=== PATIENT | female | born 1970 | race Caucasian/White ===

== ENCOUNTER 2025-01-08 13:56 | Observation (INO) | payer BC, SELFPAY ==
[2025-01-08] VITALS (60 sets, daily range): BP systolic 129–190; BP diastolic 74–101; PULSE 51–75; RESP 16–18; TEMP 36.4–37.1; O2SAT 89–100
--- NOTE | 2025-01-08 14:15 | DI.CT_ITS ---
Exam(s) CT RENAL COLIC WO EXAM: CT RENAL COLIC WO CLINICAL HISTORY: Left flank pain and LLQ pain. TECHNIQUE: Imaging Protocol: Axial computed tomography images with coronal and sagittal reformatted images were created and reviewed CONTRAST MATERIAL: Intravenous: none Oral: None COMPARISON: No exams were available for comparison FINDINGS: VISUALIZED LUNG BASES: Mild increased subpleural markings are noted in the posterior basal segment left lower lobe. No confluent infiltrate. No pleural effusions.. ABDOMEN: There is no ascites. LIVER: There are no obvious focal hepatic lesions evident of this noninfused study. GALLBLADDER/BILIARY: No obvious gallbladder pathology. CBD is not dilated. PANCREAS: No evidence of pancreatic mass nor dilatation of the pancreatic duct. SPLEEN: Spleen is not enlarged. No obvious intrasplenic lesions. ADRENALS: There are no significant adrenal masses. KIDNEYS:No cysts evident. There is a solitary tiny punctate calculus in the upper pole region of the left kidney.. Right kidney unremarkable. There is dilatation of the left kidney extrarenal pelvis. And there is dilatation of the upper 2/3 of the left ureter 6 mm diameter. There are 2 adjacent calculi which appear to be in the ureter at the junction of the mid and lower thirds in the region of the iliac vessels. These calculi measure 2 and 4 mm. Lower down there is a 4-5 millimeter calcification adjacent to the left UVJ but this is probably a phlebolith. There are no radiopaque calculi seen in the urinary bladder lumen. ABDOMINAL AORTA: Abdominal aorta is not enlarged. LYMPH NODES: There is no retroperitoneal nor paraaortic adenopathy. ABDOMINAL WALL: No evidence of significant anterior abdominal wall nor inguinal hernia. GI: There is no evidence of bowel obstruction, free air, nor abscess. PELVIS: LYMPH NODES: There is no intrapelvic nor inguinal adenopathy. GI: No evidence of appendicitis.There is some diverticulosis in the descending left colon and sigmoid. No obvious diverticulitis. URINARY BLADDER: No calculi nor obvious masses evident REPRODUCTIVE: Uterus is small-retroverted.. There are no abnormal adnexal masses and no free fluid in the pelvis. OSSEOUS: No fractures. No listhesis. No ominous osseous lesions. Benign bone island noted in L2 vertebral body. IMPRESSION: 1. Left-sided mild hydronephrosis and hydroureter. The culprit calculi appear to be in the pelvic ureter with 2 adjacent calculi measuring 2 and 4 mm. 2. There is a punctate 1 mm calculus in the upper pole the left kidney. There are no calculi in the right kidney. 3. Diverticulosis of the descending left colon and sigmoid but no evidence of acute diverticulitis. Discussed by phone with ER physician 01/08/2025 at 4:03 p.m. RADIATION DOSE DELIVERED: 436.82mGy.cm Total DLP DATA REPOSITORY: All CT scans at this facility are submitted to the National Radiology Data Registry (NRDR) Dose Index Registry (DIR) with the [employer] (ACR). RADIATION OPTIMIZATION: All CT scans at this facility use at least one of these dose optimization techniques: automated exposure control; mA and/or kV adjustment per patient size (includes targeted exams where dose is matched to clinical indication); or iterative reconstruction.
--- NOTE | 2025-01-08 14:18 | W.ED.GENAD ---
Discharge Plan Disposition Patient Disposition: Admit to [facility] Condition: Fair Discharge Details Clinical Impression: Kidney stone on left side, Renal colic on left side, Intractable abdominal pain Primary Care Provider: Mercedes Amador ED Provider: Otf Choudhury Home Meds and New Rx's Prescriptions: No Action No Known Home Meds Discharge Data Discharge Physician: Otf Choudhury HPI General Date/Time Provider Initiated Documentation: 01/08/25 14:16. HPI Narrative: Patient presents emergency department complaining of left lower back and left flank pain that started last Saturday when he went to the primary care doctor and got muscle relaxers and NSAIDs but pain is worsened with associated nausea and now it migrates to the left lower quadrant. Denies any fever chills hematuria Related Data Home Medications Medication Instructions Recorded Confirmed Unknown [No Known Home Meds] 01/08/25 01/08/25 Allergies Allergy/AdvReac Type Severity Reaction Status Date / Time No Known Allergies Allergy Unverified 01/08/25 14:04 General Stated Complaint: Abd Prob ALEXANDER: 3 Review of Systems Narrative: Review of Systems: Constitutional: No fevers, chills, sweats Eye: No recent visual problems ENT: No ear pain, nasal congestion, sore throat Respiratory: No shortness of breath, cough Cardiovascular: No Chest pain, palpitations, syncope Gastrointestinal: diarrhea Genitourinary: No hematuria Marcos/Lymph: Negative for bruising tendency, swollen lymph glands Endocrine: Negative for excessive thirst, excessive hunger Musculoskeletal: No back pain, neck pain, joint pain, muscle pain, decreased range of motion Integumentary: No rash, pruritus, abrasions Neurologic: Alert & oriented X 4 Psychiatric: No anxiety, depression Exam Narrative Exam Narrative: Exam; vitals signs as reported above normal Constitutional; In no acute distress, afebrile General: cooperative, healthy appearing, comfortable and no acute distress HEENT: Head: normal to inspection, no palpable skull fracture and normocephalic atraumatic Eyes: : appearance normal, both eyes and all related structures EOM intact bilaterally Pupils: PERRL : conjunctiva normal Direct ophthalmoscopy: normal light reflex, normal conjunctiva, normal visual acuity Ears: Normal TM, normal external canal Nose: normal no rhinorreha Neck no JVD, supple non tender Neck: normal visual inspection, full ROM and no lymphadenopathy Chest: normal inspection of the chest Respiratory : normal respiratory effort and able to speak in complete sentences no wheezing no rales Cardio Rate: regular rate, rhythm: regular rhythm normal heart sounds S1 and S2 no murmurs, gallops, or rubs GI : normal to inspection, normal bowel sounds, soft, non tender, non distended, no organomegaly Back/Spine/ no CVA tenderness Thoracic/Lumbar Spine: no tenderness or deformities Skin no rashes or lesions Neuro: patient alert oriented x 4 and no meningeal signs, Cranial Nerves: CN's II-XI intact bilaterally, Cognition: normal cognition, Speech: speech normal, Gait: normal gait, Depp tendon reflexes normal 2+ muscle strength 5/5 bilaterally Extremities, no edema, full range of motion, normal strength Course Vital Signs Vital signs: Vital Signs Temperature 36.4 C L 01/08/25 13:59 Pulse 70 01/08/25 13:59 Respiratory Rate 18 01/08/25 13:59 Blood Pressure 172/97 H 01/08/25 13:59 Pulse Oximetry 98 01/08/25 13:59 Temperature 36.4 C L 01/08/25 14:13 Pulse 70 01/08/25 14:13 Respiratory Rate 18 01/08/25 14:13 Blood Pressure 172/97 H 01/08/25 14:13 Pulse Oximetry 98 01/08/25 14:13 Oxygen Delivery Method Room Air 01/08/25 14:13 Oxygen Flow Rate 0 01/08/25 14:13 Pain Level 7 01/08/25 14:13 Medical Decision Making MDM: Summary: Patient presents emergency room complaining of left lower back pain that radiates to the left lower quadrant that started last Saturday and today associated with nausea. With a suspicion of a kidney stone labs were done and urinalysis and a CT scan renal study. Urinalysis shows hematuria and the CT scan shows 2 kidney stones at 2 mm and 4 mm in the proximal ureter with associated hydronephrosis. Patient was given IV fluids, ketorolac, Dilaudid, morphine with mild resolution but still in pain. She was also given tamsulosin. With no resolution of the symptoms and spoken with Dr. Schmidt urology and with Dr. Paula the patient will be admitted to the hospital for continuation of therapy until the stones pass. Dr. Schmidt the urologist feels that this time she be conservative and watch and see if she will eventually need stenting Data Review Analysis All the data on this patient was reviewed by me including laboratory and imaging studies as well as bedside studies performed by me Independent review of Studies Imaging As reported above Lab: As reported above patient with Risk Stratification: Kidney stones and intractable pain will be admitted to the hospital Differential Diagnosis: 1.kidney stones 2.renal colic 3.hydronephrosis 4. 5. Consultants: Dr Schmidt and Dr Paula who agree on disposition Shared disposition: pt understands and agree to stay Impression: Medical Records Medical records reviewed: Yes I reviewed the patient's medical records. Imaging Data Radiologic Study: Imaging: CT Scan Radiologist's impression: Patient Name: Fabby Peraza Unit #: [id number] Loc: ER Ordering Provider: Otf Choudhury M.D. Status: [facility] Primary Care Provider: Mercedes Amador Date of Exam: 01/08/25 Sex: F : 1970 Age: 54 Exam(s) a CT:CT renal colic wo Exam(s) CT RENAL COLIC WO EXAM: CT RENAL COLIC WO CLINICAL HISTORY: Left flank pain and LLQ pain. TECHNIQUE: Imaging Protocol: Axial computed tomography images with coronal and sagittal reformatted images were created and reviewed CONTRAST MATERIAL: Intravenous: none Oral: None COMPARISON: No exams were available for comparison FINDINGS: VISUALIZED LUNG BASES: Mild increased subpleural markings are noted in the posterior basal segment left lower lobe. No confluent infiltrate. No pleural effusions.. ABDOMEN: There is no ascites. LIVER: There are no obvious focal hepatic lesions evident of this noninfused study. GALLBLADDER/BILIARY: No obvious gallbladder pathology. CBD is not dilated. PANCREAS: No evidence of pancreatic mass nor dilatation of the pancreatic duct. SPLEEN: Spleen is not enlarged. No obvious intrasplenic lesions. ADRENALS: There are no significant adrenal masses. KIDNEYS:No cysts evident. There is a solitary tiny punctate calculus in the upper pole region of the left kidney.. Right kidney unremarkable. There is dilatation of the left kidney extrarenal pelvis. And there is dilatation of the upper 2/3 of the left ureter 6 mm diameter. There are 2 adjacent calculi which appear to be in the ureter at the junction of the mid and lower thirds in the region of the iliac vessels. These calculi measure 2 and 4 mm. Lower down there is a 4-5 millimeter calcification adjacent to the left UVJ but this is probably a phlebolith. There are no radiopaque calculi seen in the urinary bladder lumen. ABDOMINAL AORTA: Abdominal aorta is not enlarged. LYMPH NODES: There is no retroperitoneal nor paraaortic adenopathy. ABDOMINAL WALL: No evidence of significant anterior abdominal wall nor inguinal hernia. GI: There is no evidence of bowel obstruction, free air, nor abscess. PELVIS: LYMPH NODES: There is no intrapelvic nor inguinal adenopathy. GI: No evidence of appendicitis.There is some diverticulosis in the descending left colon and sigmoid. No obvious diverticulitis. URINARY BLADDER: No calculi nor obvious masses evident REPRODUCTIVE: Uterus is small-retroverted.. There are no abnormal adnexal masses and no free fluid in the pelvis. OSSEOUS: No fractures. No listhesis. No ominous osseous lesions. Benign bone island noted in L2 vertebral body. IMPRESSION: 1. Left-sided mild hydronephrosis and hydroureter. The culprit calculi appear to be in the pelvic ureter with 2 adjacent calculi measuring 2 and 4 mm. 2. There is a punctate 1 mm calculus in the upper pole the left kidney. There are no calculi in the right kidney. 3. Diverticulosis of the descending left colon and sigmoid but no evidence of acute diverticulitis. Discussed by phone with ER physician 01/08/2025 at 4:03 p.m. Lab Data Lab results reviewed: Yes I reviewed the patient's lab results. PFSH All Active Problems (Updated 01/08/25 @ 21:30 by Otf Choudhury MD) Intractable abdominal pain (Acute) Renal colic on left side (Acute) Kidney stone on left side (Acute) Social History Smoking/Tobacco Use Status: Never Smoking risk assessment performed?: Yes Alcohol Intake: current Alcohol Intake frequency: a few times a month Drug use: Occasionally Substance use type: marijuana Housing: house Do you feel safe at home: Yes Do you feel safe in your relationship?: Yes Vital Signs & Lab Results Vital Signs Most Recent Vital Signs: Most Recent Vital Signs Temp Pulse Resp BP Pulse Ox 36.4 C L 70 18 172/97 H 98 01/08/25 14:13 01/08/25 14:13 01/08/25 14:13 01/08/25 14:13 01/08/25 14:13 Lab Results 01/08/25 14:26 01/08/25 14:26 Complete Blood Count: WBC, (4.4-10.8) 5.24 10^3/uL Today, 14:26 RBC, (3.93-5.22) 4.83 10^6/uL Today, 14:26 Hgb, (11.2-15.7) 13.9 g/dL Today, 14:26 Hct, (36.0-46.0) 42.1 % Today, 14:26 Plt Count, (130-400) 217 10^3/uL Today, 14:26 Complete Metabolic Panel: Sodium, (136-145) 142 mmol/L Today, 14:26 Potassium, (3.5-5.1) 3.8 mmol/L Today, 14:26 Chloride, (98-107) 103 mmol/L Today, 14:26 Carbon Dioxide, (21.0-32.0) 31.0 mmol/L Today, 14:26 BUN, (7-18) 18 mg/dL Today, 14:26 Creatinine, (0.55-1.02) 0.7 mg/dL Today, 14:26 Est GFR (CKD-EPI 2020), (mL/min/1.73m2) 103.35 Today, 14:26 Magnesium, (1.8-2.4) 2.1 mg/dL Today, 14:26 Calcium, (8.5-10.1) 9.1 mg/dL Today, 14:26 Albumin, (3.4-5.0) 4.4 g/dL Today, 14:26 Glucose, (74-106) 90 mg/dL Today, 14:26 Liver Function Panel: ALT, (14-59) 49 U/L Today, 14:26 AST, (15-37) 21 U/L Today, 14:26 Pancreas Panel: Lipase, (<78) 29 U/L Today, 14:26
[2025-01-08] MEDS: Normal Saline 1,000 ML 1000 ML IV (14:33)
[2025-01-08 14:34] LABS: Abs Immature Grans 0.01 10^3/uL (0.0-0.06); HCT 42.1 % (36.0-46.0); HGB 13.9 g/dL (11.2-15.7); Immature Grans % 0.2 %; MCH 28.8 pg (27.0-33.0); MCHC 33.0 % (32.0-36.0); MCV 87 fL (80-95); MPV 10.6 fL (8.0-11.0); Platelet Count 217 10^3/uL (130-400); RBC 4.83 10^6/uL (3.93-5.22); RDW 12.5 % (11.7-14.6); RDW-SD 39.6 fL; WBC 5.24 10^3/uL (4.4-10.8)
[2025-01-08] MEDS: Ketorolac 15 MG/ML VIAL IVP (14:34)
[2025-01-08] MEDS: Ondansetron 4 MG/2 ML VIAL IVP (14:34)
[2025-01-08 14:47] LABS: Lipase 29 U/L (<78)
[2025-01-08 14:50] LABS: ALT 49 U/L (14-59); AST 21 U/L (15-37); Albumin 4.4 g/dL (3.4-5.0); Alkaline Phosphatase 82 U/L (46-116); Anion Gap 8.0 mmol/L (3-11); BUN 18 mg/dL (7-18); Bilirubin, Total 0.2 mg/dL (0.2-1.0); CO2 31.0 mmol/L (21.0-32.0); Calcium 9.1 mg/dL (8.5-10.1); Chloride 103 mmol/L (98-107); Glucose 90 mg/dL (74-106); Magnesium 2.1 mg/dL (1.8-2.4); Potassium 3.8 mmol/L (3.5-5.1); Sodium 142 mmol/L (136-145); Total Protein 7.8 g/dL (6.4-8.2)
[2025-01-08] MEDS: HYDROmorphone 2 MG/ML SYR 0.5 MG IVP ×2 (15:24→21:06)
[2025-01-08 17:03] LABS: Glucose Negative (Negative)
[2025-01-08 17:09] LABS: WBC Negative HPF (0-5)
[2025-01-08 17:10] LABS: C & S Indicated? No
[2025-01-08] MEDS: Normal Saline 1,000 ML 2000 ML IV ×2 (17:36→20:10)
[2025-01-08] MEDS: MORPHine 4 MG/ML SYR IVP ×2 (17:36→19:01)
[2025-01-08] MEDS: Tamsulosin 0.4 MG CAPCR PO (17:37)
--- NOTE | 2025-01-08 21:35 | W.PM.HP.N ---
Date of service: 01/08/25 Time of Service: 21:36 Assessment and Plan Assessment and plan (1) Renal colic on left side: Status: Acute Assessment and plan: Continue with IV fluids, Flomax and will strain urine. I did add Zofran for nausea which she needs it. Giving Dilaudid for pain control. Per ED, urology is aware and will see the patient. I will place a consult. History of Present Illness History of Present Illness Chief Complaint: flank pain Narrative: This is a 54-year-old female who was in good health but since Saturday has had back pain which is now radiating to the her left lower quadrant. She saw her PCP on Saturday and was diagnosed with a muscle strain and was given muscle relaxers. Since then she has continued to have worsening pain and came into the ED today for further evaluation and treatment. While she was in the ED CT renal protocol was done which showed 2 renal calculi 4 mm and 2 mm as well as some hydronephrosis. ED staff reached out to our urologist who is stating they will see the patient in the AM. They recommend hydration Flomax and straining of urine. Patient is currently in very little pain but had recently been given Dilaudid. No tobacco social EtOH use and no drugs. Does not take any home medications. Review of Systems All systems reviewed & are unremarkable except as noted in HPI and below PFSH All Active Problems (Updated 01/08/25 @ 21:30 by Otf Choudhury MD) Intractable abdominal pain (Acute) Renal colic on left side (Acute) Kidney stone on left side (Acute) Social History Smoking/Tobacco Use Status: Never Smoking risk assessment performed?: Yes Alcohol Intake: current Alcohol Intake frequency: a few times a month Drug use: Occasionally Substance use type: marijuana Housing: house Do you feel safe at home: Yes Do you feel safe in your relationship?: Yes Meds Allergies and Home Medications Allergies Allergy/AdvReac Type Severity Reaction Status Date / Time No Known Allergies Allergy Unverified 01/08/25 14:04 Home Medications Medication Instructions Recorded Confirmed Type Unknown [No Known Home Meds] 01/08/25 01/08/25 History Exam Narrative Exam Narrative: HEENT normocephalic atraumatic mucous membranes moist Neck no lymphadenopathy no JVD no thyromegaly Cardiovascular regular rate and rhythm no rubs or gallops Lungs clear to auscultation bilaterally good air exchange Abdomen mild tenderness to palpation in left lower quadrant Neurologic nonfocal Results Labs 01/08/25 14:26 01/08/25 14:26 Labs: Laboratory Results - last 24 hr 01/08/25 01/08/25 14:26 16:46 WBC 5.24 RBC 4.83 Hgb 13.9 Hct 42.1 MCV 87 MCH 28.8 MCHC 33.0 RDW 12.5 Plt Count 217 MPV 10.6 Immature Gran % 0.2 Neutrophils % 57.0 Lymphocytes % 33.8 Monocytes % 6.7 Eosinophils % 1.7 Basophils % 0.6 Nucleated RBC % 0.0 Absolute Neutrophils 2.99 Absolute Lymphocytes 1.77 Absolute Monocytes 0.35 Absolute Eosinophils 0.09 Absolute Basophils 0.03 Sodium 142 Potassium 3.8 Chloride 103 Carbon Dioxide 31.0 Anion Gap 8.0 BUN 18 Creatinine 0.7 Est GFR (CKD-EPI 2020) 103.35 Glucose 90 Calcium 9.1 Magnesium 2.1 Total Bilirubin 0.2 AST 21 ALT 49 Alkaline Phosphatase 82 Total Protein 7.8 Albumin 4.4 Lipase 29 Urine Color Yellow Urine Clarity Clear Urine pH 6.5 Ur Specific [place] 1.020 Urine Protein Negative Urine Ketones Negative Urine Blood Moderate H Urine Nitrite Negative Urine Bilirubin Negative Urine Urobilinogen 0.2 Ur Leukocyte Esterase Negative Urine RBC 10-20 H Urine WBC Negative Ur Epithelial Cells Few Urine Crystals Negative Urine Bacteria Few Urine Mucus Trace Ur Culture Indicated? No Urine Glucose Negative Last Vital Signs Temp 36.4 C L 01/08/25 14:13 Pulse 70 01/08/25 14:13 Resp 18 01/08/25 14:13 BP 172/97 H 01/08/25 14:13 Pulse Ox 98 01/08/25 14:13 Time Spent Time spent with Patient: 40-54 minutes Time was spent: preparing to see the patient(eg.review tests), obtaining and/or reviewing separately otained hiistory, ordering medications,tests, procedures, referring, communicating with other health transition of care specialist, indepentently interpreting results, counseling the patient and care coordination
[2025-01-09] MEDS: Enoxaparin 40 MG/0.4 ML SYR SC (00:25)
[2025-01-09] MEDS: Lactated Ringers 1,000 ML 150 ML IV ×2 (00:26→07:37)
[2025-01-09] MEDS: HYDROmorphone 2 MG/ML SYR 1 MG IVP (00:26)
--- NOTE | 2025-01-09 03:33 | W.PC.ACHO ---
Registration Status: ADM THOMAS Primary Language: Preferred Language: ED Information & Data Chief Complaint Abd Prob 01/08/25 14:20 Triage Note pt with c/o left side flank 01/08/25 13:59 pain onset saturday pt went to primary and got nsaids and muscle relaxers today pt began to have Left lower quandrant pain Most Recent Vital Signs Temperature 37.1 C 01/08/25 23:36 Temperature Source Temporal Artery Scan 01/08/25 23:36 Pulse 75 01/08/25 23:36 Pulse Rhythm Regular 01/09/25 00:31 Respiratory Rate 16 01/08/25 23:36 Respiratory Effort Normal 01/09/25 00:31 Respiratory Depth Normal 01/09/25 00:31 Respiratory Pattern Normal 01/09/25 00:31 Blood Pressure 139/80 01/08/25 23:36 Blood Pressure Mean 99 01/08/25 23:36 Pulse Oximetry 97 01/08/25 23:36 Oxygen Delivery Method Room Air 01/09/25 00:31 Oxygen Flow Rate 0 01/09/25 00:31 Pain Level 6 01/09/25 00:31 Allergies No Known Allergies Allergy (Unverified 01/08/25 14:04) Active Medications Generic Name Dose Route Start Last Admin Trade Name Freq PRN Reason Stop Dose Admin Enoxaparin Sodium 40 mg 01/08/25 22:00 01/09/25 00:25 Enoxaparin 40 Mg/0.4 Ml Syr SC 40 mg Q24H MEGAN Administration Hydromorphone HCl 1 mg 01/08/25 21:33 01/09/25 00:26 Hydromorphone 2 Mg/Ml Syr IVP 1 mg Q4H PRN PRN Administration Ringer's Solution 1,000 mls @ 150 mls/hr 01/08/25 21:30 01/09/25 00:26 IV 150 mls/hr INFUSION MEGAN Administration IV IV Catheter Type [Left Saline Lock Antecubital] IV Catheter Gauge [Left 18 Antecubital] Diet Orders Category Date Time Status Regular/Normal [DIET] Nutrition 01/09/25 Breakfast Active Diagnostics 01/09/25 01/08/25 01/08/25 Range/Units 05:35 16:46 14:26 WBC Pending 5.24 (4.4-10.8) 10^3/uL RBC Pending 4.83 (3.93-5.22) 10^6/uL Hgb Pending 13.9 (11.2-15.7) g/dL Hct Pending 42.1 (36.0-46.0) % MCV Pending 87 (80-95) fL MCH Pending 28.8 (27.0-33.0) pg MCHC Pending 33.0 (32.0-36.0) % RDW Pending 12.5 (11.7-14.6) % Plt Count Pending 217 (130-400) 10^3/uL MPV Pending 10.6 (8.0-11.0) fL Immature Gran % Pending 0.2 % Neutrophils % Pending 57.0 % Lymphocytes % Pending 33.8 % Monocytes % Pending 6.7 % Eosinophils % Pending 1.7 % Basophils % Pending 0.6 % Nucleated RBC % 0.0 (0.0-0.3) % Absolute Neutrophils Pending 2.99 (1.2-6.7) 10^3/uL Absolute Lymphocytes Pending 1.77 (1.2-3.4) 10^3/uL Absolute Monocytes Pending 0.35 (0.1-0.8) 10^3/uL Absolute Eosinophils Pending 0.09 (0.0-0.7) 10^3/uL Absolute Basophils Pending 0.03 (0.0-0.2) 10^3/uL Sodium Pending 142 (136-145) mmol/L Potassium Pending 3.8 (3.5-5.1) mmol/L Chloride Pending 103 (98-107) mmol/L Carbon Dioxide Pending 31.0 (21.0-32.0) mmol/L Anion Gap Pending 8.0 (3-11) mmol/L BUN Pending 18 (7-18) mg/dL Creatinine Pending 0.7 (0.55-1.02) mg/dL Est GFR (CKD-EPI 2020) Pending 103.35 (mL/min/1.73m2) Glucose Pending 90 (74-106) mg/dL Calcium Pending 9.1 (8.5-10.1) mg/dL Magnesium 2.1 (1.8-2.4) mg/dL Total Bilirubin Pending 0.2 (0.2-1.0) mg/dL AST Pending 21 (15-37) U/L ALT Pending 49 (14-59) U/L Alkaline Phosphatase Pending 82 (46-116) U/L Total Protein Pending 7.8 (6.4-8.2) g/dL Albumin Pending 4.4 (3.4-5.0) g/dL Lipase 29 (<78) U/L Urine Color Yellow (Yellow) Urine Clarity Clear (Clear) Urine pH 6.5 (5-8) Ur Specific [place] 1.020 (1.005-1.025) Urine Protein Negative (Neg-Trace) mg/dL Urine Ketones Negative (Negative) mg/dL Urine Blood Moderate H (Negative) Urine Nitrite Negative (Negative) Urine Bilirubin Negative (Negative) Urine Urobilinogen 0.2 (Up to 0.2) mg/dL Ur Leukocyte Esterase Negative (Negative) Urine RBC 10-20 H (0-2) HPF Urine WBC Negative (0-5) HPF Ur Epithelial Cells Few (Negative) HPF Urine Crystals Negative (Negative) HPF Urine Bacteria Few (Negative) HPF Urine Mucus Trace (Negative) Ur Culture Indicated? No Urine Glucose Negative (Negative) mg/dL Intake and Output - 24 Hour Total 01/08/25 13:56 thru 01/09/25 00:31 Intake Total 3000 Balance 3000 Weight 73.6 kg Intake: IV 3000 Other: Urine Appearance Clots Comment Pt voided an immeasurable amount ind. into the toilet. Falls Risk Assessment History of Falls Previous History 01/09/25 00:31 Contributing Factors Medications 01/09/25 00:31 Ambulatory Aids Independent 01/09/25 00:31 Tubes/Lines W/no contributing factors 01/09/25 00:31 Gait Evaluation No gait disturbance 01/09/25 00:31 Cognition No cognitive impairment 01/09/25 00:31 Fall Total Score 28 01/09/25 00:31 Level of Risk Moderate Risk 01/09/25 00:31 Problems (Last Reviewed 01/08/25 @ 14:19 by Otf Choudhury MD) Renal colic on left side (Acute) Attestation Statement: By documenting the first initial, last name, and credentials of the reporting nurse below, both parties acknowledge that all relevant information regarding the patient handoff has been communicated, and that all questions have been addressed to ensure continuity and safety of care. Additional Patient Information/Comments: Report Received From: Jose Maria at [id number]
[2025-01-09 06:36] LABS: Abs Immature Grans 0.01 10^3/uL (0.0-0.06); HCT 35.4 % (36.0-46.0); HGB 11.8 g/dL (11.2-15.7); Immature Grans % 0.2 %; MCH 29.9 pg (27.0-33.0); MCHC 33.3 % (32.0-36.0); MCV 90 fL (80-95); MPV 10.5 fL (8.0-11.0); Platelet Count 169 10^3/uL (130-400); RBC 3.94 10^6/uL (3.93-5.22); RDW 12.6 % (11.7-14.6); RDW-SD 41.3 fL; WBC 5.37 10^3/uL (4.4-10.8)
[2025-01-09 06:57] LABS: ALT 41 U/L (14-59); AST 21 U/L (15-37); Albumin 3.1 g/dL (3.4-5.0); Alkaline Phosphatase 60 U/L (46-116); Anion Gap 6.3 mmol/L (3-11); BUN 13 mg/dL (7-18); Bilirubin, Total 0.4 mg/dL (0.2-1.0); CO2 28.7 mmol/L (21.0-32.0); Calcium 8.1 mg/dL (8.5-10.1); Chloride 107 mmol/L (98-107); Glucose 89 mg/dL (74-106); Potassium 4.3 mmol/L (3.5-5.1); Sodium 142 mmol/L (136-145); Total Protein 5.8 g/dL (6.4-8.2)
[2025-01-09 07:29] VITALS: BP 125/72; PULSE 52; RESP 16; TEMP 36.2; O2SAT 100
[2025-01-09] MEDS: Normal Saline Flush 10 ML SYR (07:37)
--- NOTE | 2025-01-09 08:24 | W.UROLOGYCON ---
Date of service: 01/09/25 Time of Service: 08:24 Assessment and Plan Assessment and plan (1) Renal colic on left side: Status: Acute Assessment and plan: Given the size and location of the stone, I would expect that should pass without the need for surgical intervention. She has no signs of an infected system, so we do not need to do any emergent procedure to place a stent. As her pain has improved, I would think that discharging her to home with oral medications would be appropriate. I see no need for antibiotics for this patient. If she is discharged to home, I would asked that she check in with our office on Saturday to give us a progress report. If her pain recurs and she fails outpatient management, we can always arrange for ureteroscopy. History of Present Illness History of Present Illness Chief Complaint: Left ureteral stone Narrative: This is a 54-year-old woman who had been having some left-sided pain for the past few days. She was evaluated by her primary care provider. It was felt that the pain might be musculoskeletal but she did not respond to NSAIDs and muscle relaxers. When the pain worsened, she presented to the emergency department last evening. She was found to have a distal left ureteral stone causing obstruction. She had no fevers or chills. She had no signs of infection. Her pain could not be well-controlled and she was admitted for IV analgesia. She has no prior history of kidney stones. She has no known metabolic abnormalities such as gout or hyperparathyroidism. She did require IV analgesics overnight but as of this morning she is quite comfortable. She has no nausea or vomiting right now Review of Systems Narrative: No fevers or chills No vision change or dysphasia No diabetes or thyroid dysfunction No shortness of breath, cough or hemoptysis No chest pain or palpitations No nausea, vomiting, hepatitis, ulcers, jaundice No seizures, strokes or peripheral neuropathy No bleeding disorders or anemia No gout PFSH All Active Problems (Updated 01/08/25 @ 21:30 by Otf Choudhury MD) Intractable abdominal pain (Acute) Renal colic on left side (Acute) Kidney stone on left side (Acute) Social History Smoking/Tobacco Use Status: Never Smoking risk assessment performed?: Yes Alcohol Intake: current Alcohol Intake frequency: a few times a month Drug use: Occasionally Substance use type: marijuana Housing: house Do you feel safe at home: Yes Do you feel safe in your relationship?: Yes Exam Narrative Exam Narrative: She looks well. She is sitting up in bed having breakfast Her vital signs are documented elsewhere in the chart Her abdomen is soft with no peritoneal signs She is awake and alert I reviewed her CT scan on the PACS system. The stone causing hydronephrosis is at the left ureterovesical junction. There is a smaller more proximal stone in the left ureter as well Results Last Vital Signs Temp 36.2 C L 01/09/25 07:29 Pulse 52 L 01/09/25 07:29 Resp 16 01/09/25 07:29 BP 125/72 01/09/25 07:29 Pulse Ox 100 01/09/25 07:29 Labs 01/09/25 06:02 01/09/25 06:02 Labs: Laboratory Results - last 24 hr 01/08/25 01/08/25 01/09/25 14:26 16:46 06:02 WBC 5.24 5.37 RBC 4.83 3.94 Hgb 13.9 11.8 D Hct 42.1 35.4 L MCV 87 90 MCH 28.8 29.9 MCHC 33.0 33.3 RDW 12.5 12.6 Plt Count 217 169 MPV 10.6 10.5 Immature Gran % 0.2 0.2 Neutrophils % 57.0 65.4 Lymphocytes % 33.8 24.2 Monocytes % 6.7 9.1 Eosinophils % 1.7 0.7 Basophils % 0.6 0.4 Nucleated RBC % 0.0 0.0 Absolute Neutrophils 2.99 3.51 Absolute Lymphocytes 1.77 1.30 Absolute Monocytes 0.35 0.49 Absolute Eosinophils 0.09 0.04 Absolute Basophils 0.03 0.02 Sodium 142 142 Potassium 3.8 4.3 Chloride 103 107 Carbon Dioxide 31.0 28.7 Anion Gap 8.0 6.3 BUN 18 13 Creatinine 0.7 0.7 Est GFR (CKD-EPI 2020) 103.35 103.35 Glucose 90 89 Calcium 9.1 8.1 L Magnesium 2.1 Total Bilirubin 0.2 0.4 AST 21 21 ALT 49 41 Alkaline Phosphatase 82 60 Total Protein 7.8 5.8 L Albumin 4.4 3.1 L Lipase 29 Urine Color Yellow Urine Clarity Clear Urine pH 6.5 Ur Specific [place] 1.020 Urine Protein Negative Urine Ketones Negative Urine Blood Moderate H Urine Nitrite Negative Urine Bilirubin Negative Urine Urobilinogen 0.2 Ur Leukocyte Esterase Negative Urine RBC 10-20 H Urine WBC Negative Ur Epithelial Cells Few Urine Crystals Negative Urine Bacteria Few Urine Mucus Trace Ur Culture Indicated? No Urine Glucose Negative
--- NOTE | 2025-01-09 09:26 | PDOC.CMIN ---
Date of service: 01/09/25 Time of Service: 09:27 Care Management Initial Assmt Initial Assessment Reason for Hospitalization: Renal Calculi Functional Status/Living Situation Patient Presentation: Fabby was sitting up in her chair when CM met with her. Fabby presented to the ED with complaints of lower back and left flank pain with onset of last Saturday. Per report, Fabby did go to Primary care and came to ED following worsening pain. Fabby is pleseant and engages easily. Town of Residence: [place] Resides with: Spouse (Gonzalo Jeffrey) Significant Other/Family: Local Natural Supports: Family Instrumental Activities of Daily Living (ADLs): Independent Medications Medication Management: No Issues/Barriers identified Advance Directives Advance Directives: Do you have an Advance Directive: AD On File at [facility]: N 01/08/25, 15:11 Date Asked 01/08/25 01/08/25, 15:11 AD Date Reviewed COLST On File at [facility] COLST Date Scanned Code Status Resuscitation Status Full Code Portal Pt does not currently have a portal and education provided: Yes Insurance Coverage/Financial Issues Insurance: /BS [facility] Care Team Visit Care Team Role Provider Type Ronan Franco MD MD [facility] STAFF PHYSICIAN Mercedes Amador Primary Care Provider NON-[facility] STAFF PHYSICIAN Nathan Schmidt MD Other Providers [facility] STAFF PHYSICIAN Otf Choudhury MD Emergency Provider [facility] PHYSICIAN Williams Paula MD Admit Provider [facility] ST[facility]FF PHYSICIAN Attending Provider Discharge Potential Discharge Needs: PCP F/U Appt and Other (Urology F/U) Anticipated Barriers to Discharge: None Identified Patient/Family Education Needs: Review discharge instructions, discuss Ask Me Three Transportation: Private vehicle Plan: Anticipate Fabby will be discharged home with no new services indicated, once medically ready. It is recommended she follow up with community providers, urology, and discharged plan of care. She will transport home via private vehicle. CM will follow. Social Determinants of Health Screening Social Determinants of health last assessed in clinic: 01/09/25 Will the Patient Participate in the Screening?: Yes Do you worry about having a steady place to live?: no Problems where you live: no known problems In the past 12 months, have you had to go without electric, gas, oil or water in your home?: no 1. Within the past 12 months, we worried whether our food would run out before we got money to buy more.: Never true 2. Within the past 12 months, the food we bought just didn't last and we didn't have money to get more.: Never true Has lack of transportation kept you from medical appointments or from doing things needed for daily living?: no Has anyone in your life made you feel unsafe or unsupported?: no How hard is it for you to pay for the very basics like food, housing, medical care, and heating? Would you say it is:: Not hard at all Do you want help finding or keeping work or a job?: I do not need or want help If for any reason you need help with day-to-day activities such as bathing, preparing meals, shopping, managing finances, etc., do you get the help you need?: I don’t need any help How often do you feel lonely or isolated from those around you?: Never Do you speak a language other than [place] at home?: No PFSH All Active Problems (Updated 01/08/25 @ 21:30 by Otf Choudhury MD) Intractable abdominal pain (Acute) Renal colic on left side (Acute) Kidney stone on left side (Acute) Social History Smoking/Tobacco Use Status: Never Smoking risk assessment performed?: Yes Alcohol Intake: current Alcohol Intake frequency: a few times a month Drug use: Occasionally Substance use type: marijuana Housing: house Do you feel safe at home: Yes Do you feel safe in your relationship?: Yes Readmission Within the Past 30 Days Yes or No: No
[2025-01-09] MEDS: Tamsulosin 0.4 MG CAPCR 0.8 MG PO (09:56)
--- NOTE | 2025-01-09 10:28 | W.PM.DS.N ---
Date of service: 01/09/25 Time of Service: 10:28 DS: Diagnosis Discharge Diagnosis (1) Renal colic on left side: Status: Acute Discharge Plan Disposition Patient Disposition: Home Condition: Good Discharge Details Reason For Visit: Renal Calculi Admit Date/Time: 01/08/25 21:30 Admit Provider: Williams Paula Attending Provider: Williams Paula Primary Care Provider: Mercedes Amador Hospital Course Hospital Course: Patient initially presented with signs and symptoms consistent with left-sided renal colic. Patient was admitted overnight, placed on IV fluids, and last received IV pain medication around midnight. On the morning of 01/21/2025 urology consulted on the patient and felt that based on the size and the location of the stone that it would pass on its own without surgical intervention and that given the patient does not appear to have an infection and pain is well-controlled that she can be discharged home. At which time is determined patient was stable for discharge home. Home Meds and New Rx's Prescriptions: New oxycodone 5 mg capsule 5 mg PO Q8H PRNQty: 12 0RF Discharge Instructions Stand Alone Forms: Portal Information Activity:: Activity as Tolerated Equipment/Supplies:: No Equipment Needed Diet:: As Tolerated Discharge Orders Discharge Orders: Discharge Order (Routine); Ordered 01/09/25 Ordered By: Ronan Franco DS: Summary Time Spent with Patient providing and/or coordinating discharge services: Greater than 30 minutes Status at Discharge Functional status at discharge: independent ambulation Overall status at discharge: patient is back to baseline Mental Status: mental status grossly normal Speech and Movement: speech and movement normal Mood: congruent mood Affect: normal affect Exam Narrative Exam Narrative: Well-appearing female sitting up in the bed no acute distress, ANO x 4, heart regular rhythm, lungs good auscultation bilaterally, abdomen soft, nontender, nondistended Psych Mental Status: mental status grossly normal Speech and Movement: speech and movement normal Mood: congruent mood Affect: normal affect DS: Data Vitals/I&O Vitals and I&O: Vital Signs Temperature 97.2 F L 01/09/25 07:29 Temperature Source Temporal Artery Scan 01/09/25 07:29 Pulse 52 L 01/09/25 07:29 Pulse Rhythm Regular 01/09/25 00:31 Respiratory Rate 16 01/09/25 07:29 Respiratory Effort Normal 01/09/25 00:31 Respiratory Depth Normal 01/09/25 00:31 Respiratory Pattern Normal 01/09/25 00:31 Blood Pressure 125/72 01/09/25 07:29 Blood Pressure Mean 89 01/09/25 07:29 Pulse Oximetry 100 01/09/25 07:29 Oxygen Delivery Method Room Air 01/09/25 07:29 Oxygen Flow Rate 0 01/09/25 07:29 Pain Level 3 01/09/25 07:29 Intake & Output 01/08/25 01/09/25 01/09/25 17:59 05:59 17:59 Intake Total 1000 / 1000 3550 / 4550 1240 / 1240 Output Total 550 / 550 800 / 800 Balance 1000 / 1000 3000 / 4000 440 / 440 Weight 155 lb 162 lb 4.163 oz Intake: IV 1000 / 1000 3000 / 4000 1000 / 1000 Oral 550 / 550 240 / 240 Output: Urine 550 / 550 800 / 800 Other: Urine Color Yellow Yellow Urine Appearance Clear Clear Urine Odor Normal Strain Urine Result Negative-No Stones/Gravel Negative-No Stones/Gravel Comment Pt voided an immeasurable amount ind. into the toilet. Data Completed and Pending Pending Labs at Discharge: 01/08/25 01/08/25 01/09/25 14:26 16:46 06:02 WBC 5.24 5.37 RBC 4.83 3.94 Hgb 13.9 11.8 D Hct 42.1 35.4 L MCV 87 90 MCH 28.8 29.9 MCHC 33.0 33.3 RDW 12.5 12.6 Plt Count 217 169 MPV 10.6 10.5 Immature Gran % 0.2 0.2 Neutrophils % 57.0 65.4 Lymphocytes % 33.8 24.2 Monocytes % 6.7 9.1 Eosinophils % 1.7 0.7 Basophils % 0.6 0.4 Nucleated RBC % 0.0 0.0 Absolute Neutrophils 2.99 3.51 Absolute Lymphocytes 1.77 1.30 Absolute Monocytes 0.35 0.49 Absolute Eosinophils 0.09 0.04 Absolute Basophils 0.03 0.02 Sodium 142 142 Potassium 3.8 4.3 Chloride 103 107 Carbon Dioxide 31.0 28.7 Anion Gap 8.0 6.3 BUN 18 13 Creatinine 0.7 0.7 Est GFR (CKD-EPI 2020) 103.35 103.35 Glucose 90 89 Calcium 9.1 8.1 L Magnesium 2.1 Total Bilirubin 0.2 0.4 AST 21 21 ALT 49 41 Alkaline Phosphatase 82 60 Total Protein 7.8 5.8 L Albumin 4.4 3.1 L Lipase 29 Urine Color Yellow Urine Clarity Clear Urine pH 6.5 Ur Specific [place] 1.020 Urine Protein Negative Urine Ketones Negative Urine Blood Moderate H Urine Nitrite Negative Urine Bilirubin Negative Urine Urobilinogen 0.2 Ur Leukocyte Esterase Negative Urine RBC 10-20 H Urine WBC Negative Ur Epithelial Cells Few Urine Crystals Negative Urine Bacteria Few Urine Mucus Trace Ur Culture Indicated? No Urine Glucose Negative PFSH All Active Problems (Updated 01/08/25 @ 21:30 by Otf Choudhury MD) Intractable abdominal pain (Acute) Renal colic on left side (Acute) Kidney stone on left side (Acute) Social History Smoking/Tobacco Use Status: Never Smoking risk assessment performed?: Yes Alcohol Intake: current Alcohol Intake frequency: a few times a month Drug use: Occasionally Substance use type: marijuana Housing: house Do you feel safe at home: Yes Do you feel safe in your relationship?: Yes Time Spent with Patient Time Spent with Patient: <45 minutes Time was spent: preparing to see the patient(eg.review tests), obtaining and/or reviewing separately otained hiistory, ordering medications,tests, procedures, referring, communicating with other health progressive care unit registered nurse, indepentently interpreting results, counseling the patient and care coordination
--- NOTE | 2025-01-09 11:15 | PDOC.CMDIS ---
Date of service: 01/09/25 Time of Service: 11:15 LACE Index Scoring Tool Questions: Length of Stay (in days): 1 Was the patient admitted via the E.D.?: Yes E.D. Visits: 1 Answers: Total Score: 5 Risk of Readmission: Low Risk Care Management Discharge Plan Reason for Hospitalization: Renal Calculi Discharge Plan: Fabby will be discharged home today with no new services indicated. It is recommended she follow up with her community providers, and discharge plan of care. She will be transported home via private vehicle by her . Patient/Family Education Needs: Review of discharge instruction, activity, limitation, and plan of care. Discuss ask me three.
== END 2025-01-09 12:15 | disposition home or self-care (01) ==
LOC: ER 21:29 → MS 23:16
PROVIDERS: Admitting Provider Hospitalist; Emergency Provider Emergency Medicine Emergency Medical Services; PCP Family Medicine; Responsible Provider Family Medicine; Visit Provider Hospitalist
DX: N13.2 Hydronephrosis with renal and ureteral calculous obstruction (principal)
CPT/HCPCS: 00123; 36415; 80053; 83690; 96361; 96374; 96375; 96376; 99285; J1650; 74176; 81003; 81015; 83735; 85025; 99222; 99238; G0378; J1171; J1885; J2270; J2405